=== PATIENT | female | born 1990 | race African-American/Black ===

== ENCOUNTER 2017-01-18 12:33 | Emergency (ER) | payer MEDICAID, OTHER ==
[~2017-01-18] VITALS: Ht 160 cm; Wt 83.9 kg
[~2017-01-18 12:33] MED LIST: BENADRYL25 MG ORAL; BENADRYL50 MG ORAL; PREDNISONE20 MG ORAL; RANITIDINE HCL150 MG ORAL
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
[2017-01-18] MEDS ORDERED: IBUPROFEN400 MG ORAL (13:09)
[2017-01-18] MEDS ORDERED: SOMA350 MG PO (13:09)
[2017-01-18] MEDS ORDERED: CYCLOBENZAPRINE10 MG ORAL (13:09)
[2017-01-18 13:11] VITALS: BP 143/83
[2017-01-18 13:15] VITALS: BP 143/83
== END 2017-01-18 13:44 | disposition home or self-care (01) ==
LOC: EMR 12:56
DX: S16.1XXA Strain of muscle, fascia and tendon at neck level, initial encounter (principal); V43.52XA Car driver injured in collision with other type car in traffic accident, initial encounter; Y93.9 Activity, unspecified; Y92.410 Unspecified street and highway as the place of occurrence of the external cause; Z88.0 Allergy status to penicillin
CPT/HCPCS: 99284

== ENCOUNTER 2017-06-12 01:31 | Emergency (ER) | payer OTHER ==
[~2017-06-12] VITALS: Ht 160 cm; Wt 99.8 kg
[~2017-06-12 01:31] MED LIST changes: +CYCLOBENZAPRINE10 MG ORAL; +IBUPROFEN400 MG ORAL; +SOMA350 MG PO
[2017-06-12] MEDS ORDERED: NKM (01:37)
[2017-06-12 01:39] VITALS: BP 138/92
[2017-06-12] MEDS ORDERED: PSEUDOEPHEDRINE60 MG PO (02:07)
[2017-06-12] MEDS ORDERED: AZITHROMYCIN250 MG ORAL (02:07)
--- NOTE | 2017-06-12 02:08 | Emergency Room Report ---
History of Present Illness General Chief Complaint: Flu Like Symptoms Source: Patient Present Illness HPI Is a 27-year-old female with no past medical history. She presents with flulike illness from a week and a half. Admission as fever but none now. She felt congested, stuffy nose, ear pain, sore throat, cough. Worse with inspiration. Worse with lying flat. Also has nausea and vomiting. Denies any other complaint. Allergies: Coded Allergies: PENICILLINS (Verified Allergy, Unknown, 06/02/15) Patient History Past Medical History: see triage record, old chart reviewed Past Surgical History: other Pertinent Family History: none Social History: Denies: smoking Last Menstrual Period: apr 25, 2017 Immunizations: other Reviewed Nursing Documentation: PMH: Agreed, PSxH: Agreed Nursing Documentation-PMH Past Medical History: No Stated History Review of Systems Constitutional: Reports: fever, weakness Eye: Denies: eye pain, blurred vision ENT: Reports: ear pain, nose congestion, throat pain, Denies: throat swelling Respiratory: Reports: cough, Denies: shortness of breath Cardiovascular: Denies: chest pain, palpitations Gastrointestinal: Denies: abdominal pain, diarrhea, nausea, vomiting Musculoskeletal: Denies: back pain, joint pain Skin: Denies: rash Neurological: Denies: headache, numbness Endocrine: Denies: increased thirst, increased urine Hematologic/Lymphatic: Denies: easy bruising All Other Systems: negative except mentioned in HPI Physical Exam Vital Signs Date Time Temp Pulse Resp B/P (MAP) Pulse Ox O2 Delivery O2 Flow Rate FiO2 06/12/17 01:33 98.4 85 18 138/92 98 Room Air vitals normal Sp02 EP Interpretation: reviewed, normal General Appearance: well appearing, no apparent distress, alert Head: normocephalic, atraumatic Eyes: bilateral eye PERRL, bilateral eye EOMI ENT: hearing grossly normal, uvula midline - enlarged, nasal congestion, tonsillar swelling, pharyngeal erythema, other - Rt TM with effusion Neck: full range of motion, supple, no meningismus Respiratory: chest non-tender, lungs clear, normal breath sounds Cardiovascular #1: regular rate, rhythm, no murmur Gastrointestinal: normal bowel sounds, non tender, no mass, no organomegaly, no bruit, non-distended Musculoskeletal: back normal, gait/station normal, normal range of motion Psychiatric: mood/affect normal Skin: warm/dry Medical Decision Making Diagnostic Impression: Primary Impression: Influenza-like symptoms Additional Impression: Otitis media Qualified Codes: H66.90 - Otitis media, unspecified, unspecified ear ER Course Patient with a viral like illness complicated by otitis media. Symptom is going on for a week and a half, will put her on antibiotics also. No evidence of sepsis, pneumonia, meningitis to name a few Last Vital Signs Date Time Temp Pulse Resp B/P (MAP) Pulse Ox O2 Delivery O2 Flow Rate FiO2 06/12/17 01:39 98.4 88 18 138/92 98 Room Air Status: unchanged Disposition: HOME, SELF-CARE Condition: Stable Scripts Azithromycin* (ZITHROMAX*) 250 Mg Tablet 250 MG ORAL DAILY, #6 TAB 0 Refills Take two tablets by mouth today, then take one tablet by mouth daily for four days Prov: VALENTINE BOO M.D. 06/12/17 Pseudoephedrine Hcl* (SUDAFED*) 60 Mg Tablet 60 MG PO Q6H, #30 TAB Prov: VALENTINE BOO M.D. 06/12/17 Referrals: [facility] (PCP) Additional Instructions: Followup with your DrDahlia in 7 days. Return if symptom worsen. VALENTINE BOO M.D. Jun 12, 2017 02:08
[2017-06-12 02:17] VITALS: BP 120/76
== END 2017-06-12 02:20 | disposition home or self-care (01) ==
LOC: EMR 02:02
DX: J11.1 Influenza due to unidentified influenza virus with other respiratory manifestations (principal); H66.90 Otitis media, unspecified, unspecified ear; Z88.0 Allergy status to penicillin
CPT/HCPCS: 99283

== ENCOUNTER 2017-06-19 16:22 | Emergency (ER) | payer OTHER ==
[~2017-06-19] VITALS: Ht 160 cm; Wt 102.5 kg
[~2017-06-19 16:22] MED LIST changes: +AZITHROMYCIN250 MG ORAL; +NKM; +PSEUDOEPHEDRINE60 MG PO
[2017-06-19 17:07] LABS: APPEARANCE,URINE CLEAR; KETONES,URINE NEGATIVE (NEGATIVE); LEUKOCYTE ESTERASE ,URINE 1+ (NEGATIVE); NITRITE,URINE NEGATIVE (NEGATIVE); PH,URINE 7 (4.5-8.0); PROTEIN,URINE 1+ (NEGATIVE); UROBILINOGEN,URINE 1 MG/DL (0.0-1.0)
[2017-06-19 17:13] VITALS: BP 128/83
[2017-06-19 17:16] LABS: BACTERIA,URINE FEW /HPF; SQUAMOUS EPITHELIAL CELL,UR MODERATE /LPF (NONE/OCC); WBC,URINE 0-2 /HPF (0 - 2)
[2017-06-19 17:43] LABS: EOSINOPHILS % (AUTO) 0.5 % (0.0-3.0); LYMPHOCYTES % (AUTO) 36.5 % (20.0-45.0); MEAN CORPUSCULAR HEMOGLOBIN 25.6 PG (27.0-31.0); MEAN CORPUSCULAR HGB CONC 29.8 G/DL (32.0-36.0); MEAN CORPUSCULAR VOLUME 86 FL (80-99); MEAN PLATELET VOLUME 5.6 FL (6.5-10.1); MONOCYTES % (AUTO) 5.1 % (1.0-10.0); NEUTROPHILS % (AUTO) 56.9 % (45.0-75.0); PLATELET COUNT 329 K/UL (150-450); RED CELL DISTRIBUTION WIDTH 12.8 % (11.6-14.8); WHITE BLOOD COUNT 10.3 K/UL (4.8-10.8)
[2017-06-19 17:47] LABS: INR 0.9 (0.9-1.1); PROTHROMBIN TIME 9.8 SEC (9.30-11.50)
[2017-06-19 17:48] LABS: ANION GAP 12 mmol/L (5-15); CARBON DIOXIDE 23 MMOL/L (21-32); CHLORIDE 106 MMOL/L (98-107); CREATININE 0.7 MG/DL (0.55-1.30); GLOMERULAR FILTRATION RATE > 60 mL/min (>60); POTASSIUM 3.6 MMOL/L (3.5-5.1); SODIUM 141 MMOL/L (136-145)
[2017-06-19 17:52] LABS: ALANINE AMINOTRANSFERASE 18 U/L (12-78); ASPARTATE AMINO TRANSFERASE 12 U/L (15-37); LIPASE 134 U/L (73-393); TOTAL PROTEIN 7.1 G/DL (6.4-8.2)
[2017-06-19] MEDS ORDERED: PRENATAL VITAM1 EACH PO (19:13)
[2017-06-19 19:20] VITALS: BP 128/83
--- NOTE | 2017-06-19 21:59 | Emergency Room Report ---
History of Present Illness General Chief Complaint: Nausea Source: Patient Present Illness [facility] The patient is a 27-year-old female presenting for abdominal pain and nausea. This has been present for the past 3 weeks. She was seen in this emergency department and diagnosed with an upper respiratory infection. She states the symptoms persisted. Pain is described as a 10 out of 10 dull ache primarily to the mid lower abdomen. No known provoking or relieving factors. Last normal menstrual period was approximately 2 months prior. She states that she usually has regular menstruation. She denies any other symptoms including vomiting, fever, chills, dizziness, blurred vision, headache, swelling, back pain, dysuria, hematuria, vaginal discharge Allergies: Coded Allergies: PENICILLINS (Verified Allergy, Unknown, 06/02/15) Patient History Past Medical History: see triage record Pertinent Family History: none Last Menstrual Period: apr 25 : 0 Reviewed Nursing Documentation: PMH: Agreed, PSxH: Agreed Nursing Documentation-PMH Past Medical History: No Stated History Review of Systems All Other Systems: negative except mentioned in HPI Physical Exam Vital Signs Date Time Temp Pulse Resp B/P (MAP) Pulse Ox O2 Delivery O2 Flow Rate FiO2 06/19/17 16:27 91 18 128/83 100 Room Air Sp02 EP Interpretation: reviewed, normal General Appearance: no apparent distress, alert, GCS 15, non-toxic Head: normocephalic, atraumatic Eyes: bilateral eye normal inspection, bilateral eye PERRL ENT: hearing grossly normal, normal pharynx, no angioedema, normal voice Neck: full range of motion, supple/symm/no masses Respiratory: chest non-tender, lungs clear, normal breath sounds, speaking full sentences Cardiovascular #1: regular rate, rhythm, no edema Gastrointestinal: normal bowel sounds, non tender, soft, non-distended, no guarding, no rebound Rectal: deferred Genitourinary: normal inspection, no CVA tenderness Musculoskeletal: back normal, gait/station normal, normal range of motion, non- tender, calf tenderness Neurologic: alert, oriented x3, responsive, motor strength/tone normal, sensory intact, speech normal Psychiatric: judgement/insight normal, memory normal, mood/affect normal, no suicidal/homicidal ideation Skin: normal color, no rash, warm/dry, well hydrated Medical Decision Making PA Attestation Dr. Gabriel is my supervising physician. Patient management was discussed with my supervising physician Diagnostic Impression: Primary Impression: Threatened miscarriage ER Course The patient is a 27-year-old female presenting for abdominal pain and nausea There is an IUP at approximately 7 weeks by size. Heart rate in the 160s Physical exam: No apparent distress Lungs are clear to auscultation bilaterally RRR Abdomen is soft and nontender. Normal bowel sounds. Nondistended. No CVA tenderness Labs: No leukocytosis. CMP unremarkable. Urine positive Beta hCG 38,000 Blood in urine Ultrasound shows an IUP at approximate 7 weeks with good heart tones due to blood in urine with no signs of infection, the patient was informed that this will be called a threatened miscarriage and needs to followup with her OB as soon as possible. She is given prescription for vitamins. ER precautions given Laboratory Tests Test 06/19/17 16:33 06/19/17 17:00 Urine Color Yellow Urine Appearance Clear Urine pH 7 (4.5-8.0) Urine Specific [place] 1.015 (1.005-1.035) Urine Protein 1+ (NEGATIVE) H Urine Glucose (UA) Negative (NEGATIVE) Urine Ketones Negative (NEGATIVE) Urine Occult Blood 4+ (NEGATIVE) H Urine Nitrite Negative (NEGATIVE) Urine Bilirubin Negative (NEGATIVE) Urine Urobilinogen 1 MG/DL (0.0-1.0) H Urine Leukocyte Esterase 1+ (NEGATIVE) H Urine RBC 2-4 /HPF (0 - 2) H Urine WBC 0-2 /HPF (0 - 2) Urine Squamous Epithelial Cells Moderate /LPF (NONE/OCC) H Urine Bacteria Few /HPF (NONE) Urine HCG, Qualitative Positive White Blood Count 10.3 K/UL (4.8-10.8) Red Blood Count 4.80 M/UL (4.20-5.40) Hemoglobin 12.3 G/DL (12.0-16.0) Hematocrit 41.2 % (37.0-47.0) Mean Corpuscular Volume 86 FL (80-99) Mean Corpuscular Hemoglobin 25.6 PG (27.0-31.0) L Mean Corpuscular Hemoglobin Concent 29.8 G/DL (32.0-36.0) L Red Cell Distribution Width 12.8 % (11.6-14.8) Platelet Count 329 K/UL (150-450) Mean Platelet Volume 5.6 FL (6.5-10.1) L Neutrophils (%) (Auto) 56.9 % (45.0-75.0) Lymphocytes (%) (Auto) 36.5 % (20.0-45.0) Monocytes (%) (Auto) 5.1 % (1.0-10.0) Eosinophils (%) (Auto) 0.5 % (0.0-3.0) Basophils (%) (Auto) 1.0 % (0.0-2.0) Prothrombin Time 9.8 SEC (9.30-11.50) Prothrombin Time INR 0.9 (0.9-1.1) PTT 26 SEC (23-33) Sodium Level 141 MMOL/L (136-145) Potassium Level 3.6 MMOL/L (3.5-5.1) Chloride Level 106 MMOL/L (98-107) Carbon Dioxide Level 23 MMOL/L (21-32) Anion Gap 12 mmol/L (5-15) Blood Urea Nitrogen 6 mg/dL (7-18) L Creatinine 0.7 MG/DL (0.55-1.30) Estimate Glomerular Filtration Rate > 60 mL/min (>60) Glucose Level 90 MG/DL (74-106) Calcium Level 9.0 MG/DL (8.5-10.1) Total Bilirubin 0.2 MG/DL (0.2-1.0) Aspartate Amino Transferase (AST) 12 U/L (15-37) L Alanine Aminotransferase (ALT) 18 U/L (12-78) Alkaline Phosphatase 51 U/L (46-116) Total Protein 7.1 G/DL (6.4-8.2) Albumin 3.5 G/DL (3.4-5.0) Globulin 3.6 g/dL Albumin/Globulin Ratio 1.0 (1.0-2.7) Lipase 134 U/L (73-393) Human Chorionic Gonadotropin, Quant 23285 mIU/mL (1-6) H Lab Results Impression No leukocytosis. CMP unremarkable. Urine positive. Blood in urine Beta hCG 38,000 CT/MRI/US Diagnostic Results CT/MRI/US Diagnostic Results : Imaging Test Ordered: OB US Impression There is an IUP at approximately 7 weeks by size. Heart rate in the 160s Last Vital Signs Date Time Temp Pulse Resp B/P (MAP) Pulse Ox O2 Delivery O2 Flow Rate FiO2 06/19/17 17:13 75 18 128/83 100 Room Air Status: improved Disposition: HOME, SELF-CARE Condition: Improved Scripts Vits W-Ca,Fe,Fa(<1MG) ( VITAMINS) 1 Each Tablet 1 EACH PO DAILY, #30 TAB Prov: EKNNA MCNAMARA 06/19/17 Patient Instructions: Threatened Miscarriage, First Trimester of Additional Instructions: I discussed my findings with the patient. All questions and concerns have been answered. Treatment and medication compliance have been addressed. The patient is to followup with OB as soon as possible for further treatment and evaluation KENNA MCNAMARA Jun 19, 2017 21:59
--- NOTE | 2017-06-20 10:42 | Diagnostic Imaging Report ---
Indication: Positive test, vaginal spotting, vomiting Technique: Transabdominal and transvaginal images Comparison: None Findings: Uterus measures 10.1 cm length by 5.9 cm AP. Within the endometrium, there is a gestational sac. This contains a pole which demonstrates positive heart activity, heart rate [address] minute[address] Lane-rump length is of mm, corresponding to an estimated gestational age of 7 weeks and 3 days. There is no evidence of subchorionic hemorrhage. The myometrium is unremarkable. There is a small cervical nabothian cyst. Patient was unable tolerate endovaginal imaging of the ovaries. However, they are well demonstrated transabdominally and appear unremarkable. No free cul-de-sac fluid Impression: 7 weeks 3 days, by crown-rump length measurement, single live intrauterine . No unusual features
== END 2017-06-19 19:20 | disposition home or self-care (01) ==
LOC: EMR 16:41
DX: O20.0 Threatened abortion (principal); Z3A.01 Less than 8 weeks gestation of pregnancy; Z88.0 Allergy status to penicillin
CPT/HCPCS: 36415; 76801; 76830; 80053; 81003; 81025; 83690; 84702; 85025; 85610; 85730; 86850; 86900; 86901; 99284

== ENCOUNTER 2017-07-10 15:36 | Emergency (ER) | payer MEDICAID, OTHER ==
[~2017-07-10] VITALS: Ht 160 cm; Wt 100.7 kg
[~2017-07-10 15:36] MED LIST changes: +PRENATAL VITAM1 EACH PO
[2017-07-10 16:03] VITALS: BP 118/80
[2017-07-10 16:43] LABS: APPEARANCE,URINE CLEAR; KETONES,URINE 4+ (NEGATIVE); LEUKOCYTE ESTERASE ,URINE 1+ (NEGATIVE); NITRITE,URINE NEGATIVE (NEGATIVE); PH,URINE 6 (4.5-8.0); PROTEIN,URINE 1+ (NEGATIVE); UROBILINOGEN,URINE 4 MG/DL (0.0-1.0)
--- NOTE | 2017-07-10 17:04 | Emergency Room Report ---
History of Present Illness General Chief Complaint: Abdominal Pain Source: Patient Present Illness HPI 27-year-old female presents to the emergency department complaining of 6/10 in severity low back pain with intermittent uterine cramping and nausea, vomiting x3 days. Patient reports that she has been having intermittent vomiting x1 month. Patient states she was evaluated approximately 3 weeks ago and got out she was . Patient is denies vaginal discharge, bleeding, trauma or fall. She denies recent spinal procedures or history of neoplastic disease. Patient denies fevers, chills, neck pain or stiffness. Denies frequency, hematuria, dysuria or urgency. Denies blood in the vomit or stool, and no dark tarry stools. Denies constipation or diarrhea. Denies ill contacts or recent travel. Denies CP, Palpitations, LOC, AMS, dizziness, Changes in Vision, Sensation, paresthesias, or a sudden severe headache. Allergies: Coded Allergies: PENICILLINS (Verified Allergy, Unknown, 06/02/15) Patient History Past Medical History: see triage record Past Surgical History: none Pertinent Family History: none Last Menstrual Period: 04/25/17 Now: Yes - Nine weeks ago : 1 Para: 0 Immunizations: UTD Reviewed Nursing Documentation: PMH: Agreed, PSxH: Agreed Nursing Documentation-PMH Past Medical History: No Stated History Review of Systems All Other Systems: negative except mentioned in HPI Physical Exam Vital Signs Date Time Temp Pulse Resp B/P (MAP) Pulse Ox O2 Delivery O2 Flow Rate FiO2 07/10/17 15:44 98.1 83 16 118/80 98 Room Air Sp02 EP Interpretation: reviewed, normal General Appearance: no apparent distress, alert, GCS 15, non-toxic Head: normocephalic, atraumatic Eyes: bilateral eye normal inspection, bilateral eye PERRL ENT: hearing grossly normal, normal voice Neck: full range of motion Respiratory: lungs clear, normal breath sounds, speaking full sentences Cardiovascular #1: normal capillary refill Gastrointestinal: normal bowel sounds, non tender, soft, no guarding, no rebound Rectal: deferred Genitourinary: normal inspection, no CVA tenderness Musculoskeletal: back normal, gait/station normal, normal range of motion, tender - mild lumbar paraspinal ttp, FROM, no obvious deformity, no evidence of infecitons. Neurologic: alert, oriented x3, responsive, motor strength/tone normal, sensory intact, normal gait, speech normal Skin: normal color, no rash, warm/dry, well hydrated Lymphatic: no adenopathy Medical Decision Making PA Attestation Dr. garcia is my supervising Physician whom patient management has been discussed with. Diagnostic Impression: Primary Impression: Vomiting complicating Additional Impressions: Back pain affecting in first trimester Threatened miscarriage ER Course 27-year-old female presents to the emergency department complaining of 6/10 in severity low back pain with intermittent uterine cramping and nausea, vomiting x3 days. Patient reports that she has been having intermittent vomiting x1 month. Patient states she was evaluated approximately 3 weeks ago and got out she was . Patient is denies vaginal discharge, bleeding, trauma or fall. She denies recent spinal procedures or history of neoplastic disease. Patient denies fevers, chills, neck pain or stiffness. Denies frequency, hematuria, dysuria or urgency. Denies blood in the vomit or stool, and no dark tarry stools. Denies constipation or diarrhea. Denies ill contacts or recent travel. Denies CP, Palpitations, LOC, AMS, dizziness, Changes in Vision, Sensation, paresthesias, or a sudden severe headache. Ddx considered but are not limited to hyperemesis gravidum, GE, colitis, acute appy, SBO, Cyclical Vomiting secondary to THC, Pyelo, UTI just to name a few. Vital signs: pt. is afebrile, H&PE are most consistent with vomiting during , no significant dehydration. ORDERS: -Urine Hcg: positive -UA: Negative ED INTERVENTIONS: -Reglan PO -Oral fluid challenge -d/w pt. OBGYN follow up , conservative treatment for back pain. DISCHARGE: At this time pt. is stable for d/c to home. Will provide printed patient care instructions, and any necessary prescriptions. Care plan and follow up instructions have been discussed with the patient prior to discharge. Labs Test 07/10/17 16:30 Urine Color Yellow Urine Appearance Clear Urine pH 6 (4.5-8.0) Urine Specific [place] 1.020 (1.005-1.035) Urine Protein 1+ (NEGATIVE) Urine Glucose (UA) Negative (NEGATIVE) Urine Ketones 4+ (NEGATIVE) Urine Occult Blood 2+ (NEGATIVE) Urine Nitrite Negative (NEGATIVE) Urine Bilirubin Negative (NEGATIVE) Urine Urobilinogen 4 MG/DL (0.0-1.0) Urine Leukocyte Esterase 1+ (NEGATIVE) Urine RBC 2-4 /HPF (0 - 2) Urine WBC 0-2 /HPF (0 - 2) Urine Squamous Epithelial Cells Few /LPF (NONE/OCC) Urine Amorphous Sediment Few /LPF (NONE) Urine Bacteria Few /HPF (NONE) Urine HCG, Qualitative Positive Last Vital Signs Date Time Temp Pulse Resp B/P (MAP) Pulse Ox O2 Delivery O2 Flow Rate FiO2 07/10/17 16:03 98.1 80 16 118/80 98 Room Air Disposition: HOME, SELF-CARE Condition: Stable Scripts Lidocaine (Lidoderm) 1 Each Adh..patch 1 PATCH TOPIC DAILY, #25 PATCH 0 Refills Patch(es) may remain in place for up to 12 hours in any 24-hour period. Prov: Davina Fine 07/10/17 Metoclopramide Hcl* (REGLAN*) 10 Mg Tablet 10 MG ORAL THREE TIMES A DAY Y for Nausea & Vomiting, #20 TAB Prov: Davina Fine 07/10/17 Departure Forms: Return to Work Return to Work Date: Jul 14, 2017 Work Restrictions: No Heavy Lifting Return to Full Activity: Jul 21, 2017 Patient Instructions: Back Pain in , Nausea and Vomiting, Adult, Easy- to-Read Additional Instructions: Take medications as directed. Follow up with a Primary Care Provider in 3-5 days, even if your symptoms have resolved. --Please review list of primary care clinics, if you do not already have a primary care provider Return sooner to ED if new symptoms occur, or current symptoms become worse. Do not drink alcohol, drive, or operate heavy machinery while taking [ ] as this may cause drowsiness. - Please note that this Emergency Department Report was dictated using [employer] manager technology software, occasionally this can lead to erroneous entry secondary to interpretation by the dictation equipment. Davina Fine Jul 10, 2017 17:04
[2017-07-10 17:12] LABS: WBC,URINE 0-2 /HPF (0 - 2)
[2017-07-10 17:16] LABS: BACTERIA,URINE FEW /HPF; SQUAMOUS EPITHELIAL CELL,UR FEW /LPF (NONE/OCC)
[2017-07-10 17:17] LABS: AMORPHOUS SEDIMENT,UR FEW /LPF
[2017-07-10] MEDS ORDERED: LIDODERM700 M1 TOPIC (17:43)
[2017-07-10] MEDS ORDERED: REGLAN10 MG ORAL (17:43)
[2017-07-10 18:04] VITALS: BP 115/78
[2017-07-10 18:05] VITALS: BP 115/78
[2017-07-10] MEDS ORDERED: REGLAN5 MG ORAL (23:16)
== END 2017-07-10 18:06 | disposition home or self-care (01) ==
LOC: EMR 17:17
DX: O21.9 Vomiting of pregnancy, unspecified (principal); O20.0 Threatened abortion; O26.891 Other specified pregnancy related conditions, first trimester; M54.9 Dorsalgia, unspecified; Z88.0 Allergy status to penicillin; Z3A.09 9 weeks gestation of pregnancy
CPT/HCPCS: 81003; 81025; 99283

== ENCOUNTER 2017-07-10 21:20 | Emergency (ER) | payer MEDICAID ==
[~2017-07-10] VITALS: Ht 160 cm; Wt 99.8 kg
[~2017-07-10 21:20] MED LIST changes: +LIDODERM700 M1 TOPIC; +REGLAN10 MG ORAL
[2017-07-10 21:40] VITALS: BP 119/79
[2017-07-10 22:56] LABS: APPEARANCE,URINE CLEAR; KETONES,URINE 4+ (NEGATIVE); LEUKOCYTE ESTERASE ,URINE 1+ (NEGATIVE); NITRITE,URINE NEGATIVE (NEGATIVE); PH,URINE 5 (4.5-8.0); PROTEIN,URINE 2+ (NEGATIVE); UROBILINOGEN,URINE 4 MG/DL (0.0-1.0)
[2017-07-10 23:13] LABS: AMORPHOUS SEDIMENT,UR FEW /LPF; BACTERIA,URINE FEW /HPF; SQUAMOUS EPITHELIAL CELL,UR FEW /LPF (NONE/OCC)
[2017-07-10 23:14] LABS: ICTOTEST NEGATIVE
[2017-07-10] MEDS ORDERED: REGLAN5 MG ORAL (23:16)
[2017-07-10 23:29] VITALS: BP 119/79
--- NOTE | 2017-07-11 04:30 | Emergency Room Report ---
History of Present Illness General Chief Complaint: Vaginal Source: Patient Present Illness HPI Patient presents with lower abdominal cramping and spotting Patient is Reports that she was here earlier today with cramping However there was initially no blood in that this time she has noticed increased spotting Patient also complained of nausea and vomiting However at this time is asymptomatic Denies any chest pain or shortness of breath Patient's ultrasound here from approximately 3 weeks ago showing intrauterine Allergies: Coded Allergies: PENICILLINS (Verified Allergy, Unknown, 06/02/15) Patient History Past Medical History: see triage record Pertinent Family History: none Last Menstrual Period: apr 25 Now: Yes - 9 weeks : 1 Reviewed Nursing Documentation: PMH: Agreed, PSxH: Agreed Nursing Documentation-PMH Past Medical History: No Stated History Review of Systems All Other Systems: negative except mentioned in HPI Physical Exam Vital Signs Date Time Temp Pulse Resp B/P (MAP) Pulse Ox O2 Delivery O2 Flow Rate FiO2 07/10/17 21:30 99.1 94 18 119/79 98 Room Air Sp02 EP Interpretation: reviewed, normal General Appearance: well appearing, no apparent distress Head: normocephalic, atraumatic Eyes: bilateral eye PERRL, bilateral eye EOMI ENT: hearing grossly normal, normal pharynx, TMs + canals normal, uvula midline Neck: full range of motion, supple, no meningismus, no bony tend Respiratory: lungs clear, normal breath sounds, no rhonchi, no respiratory distress, no retraction, no accessory muscle use Cardiovascular #1: normal peripheral pulses, regular rate, rhythm, no edema, no gallop, no JVD, no murmur Gastrointestinal: normal bowel sounds, non tender, soft, no mass, no organomegaly, non-distended, no guarding, no hernia, no pulsatile mass, no rebound Genitourinary: no CVA tenderness Musculoskeletal: normal inspection Neurologic: oriented x3, responsive, cna caregiver III-XII nml as tested, motor strength/ tone normal, sensory intact Psychiatric: mood/affect normal Skin: normal color, no rash, warm/dry, palpation normal Lymphatic: normal inspection, no adenopathy Medical Decision Making Diagnostic Impression: Primary Impression: Threatened miscarriage ER Course With the patient's history and examination, multiple differentials considered, including but not limited to , ectopic , ovarian torsion, gastritis, cholecystitis, pancreatitis, appendicitis Ultrasound reveals intrauterine with heart tones visible approximately 10 weeks urine sample shows few bacteria Patient is treated symptomatically There was a small subchorionic hemorrhage on ultrasounds well the patient requires close followup Labs Test 07/10/17 20:00 07/10/17 22:54 Urine Color Yellow Urine Appearance Clear Urine pH 5 (4.5-8.0) Urine Specific [place] 1.025 (1.005-1.035) Urine Protein 2+ (NEGATIVE) Urine Glucose (UA) Negative (NEGATIVE) Urine Ketones 4+ (NEGATIVE) Urine Occult Blood 3+ (NEGATIVE) Urine Nitrite Negative (NEGATIVE) Urine Bilirubin 1+ (NEGATIVE) Urine Ictotest Negative Urine Urobilinogen 4 MG/DL (0.0-1.0) Urine Leukocyte Esterase 1+ (NEGATIVE) Urine RBC 2-4 /HPF (0 - 2) Urine WBC 2-4 /HPF (0 - 2) Urine Squamous Epithelial Cells Few /LPF (NONE/OCC) Urine Amorphous Sediment Few /LPF (NONE) Urine Bacteria Few /HPF (NONE) Human Chorionic Gonadotropin, Quant 40834 mIU/mL (1-6) CT/MRI/US Diagnostic Results CT/MRI/US Diagnostic Results : Impression Ultrasound: Single live intrauterine , heart tone in the 140s, small subchorionic hemorrhage Last Vital Signs Date Time Temp Pulse Resp B/P (MAP) Pulse Ox O2 Delivery O2 Flow Rate FiO2 07/10/17 23:29 99.1 94 18 119/79 98 Room Air Status: improved Disposition: HOME, SELF-CARE Condition: Stable Scripts Metoclopramide Hcl* (REGLAN*) 5 Mg Tablet 5 MG ORAL EVERY 8 HOURS, #15 TAB Prov: RAFAEL YEPEZ D.O. 07/10/17 Referrals: [facility],REFERRING (PCP) Patient Instructions: Threatened Miscarriage, [id number] Additional Instructions: Patient is provided with the discharge instructions notified to follow up with primary doctor in the next 2-3 days otherwise return to the er with any worsening symptoms. Please note that this report is being documented using [employer] technology. This can lead to erroneous entry secondary to incorrect interpretation by the dictating instrument. RAFAEL YEPEZ D.O. Jul 11, 2017 04:29
== END 2017-07-10 23:29 | disposition home or self-care (01) ==
LOC: EMR 22:30
DX: O20.0 Threatened abortion (principal); Z88.0 Allergy status to penicillin; Z3A.09 9 weeks gestation of pregnancy
CPT/HCPCS: 36415; 76801; 76830; 81003; 81025; 84702; 99283